=== PATIENT | female | born 1975 | race African-American/Black ===

== ENCOUNTER 2017-06-01 13:16 | Emergency (ER) | payer SELFPAY ==
[~2017-06-01 13:16] MED LIST: TRAM50TA3 PO
== END 2017-06-01 14:04 | disposition left against medical advice (07) ==
LOC: ER 13:55
DX: N64.4 Mastodynia (principal); Z53.21 Procedure and treatment not carried out due to patient leaving prior to being seen by health care provider

== ENCOUNTER 2017-06-03 08:54 | Emergency (ER) | payer SELFPAY ==
[~2017-06-03] VITALS: Ht 172.7 cm; Wt 90.0 kg
[2017-06-03] MEDS ORDERED: ACETAMINOPHEN 325MG TABLET PO ONE (10:15)
[2017-06-03 11:00] LABS: *AMPHETAMINES SCREEN URINE NEGATIVE (NEGATIVE); *BARBITURATES SCREEN URINE NEGATIVE (NEGATIVE); *BENZODIAZEPINES SCREEN URINE NEGATIVE (NEGATIVE); *COCAINE SCREEN URINE NEGATIVE (NEGATIVE); METHADONE URINE SCREEN NEGATIVE (NEGATIVE); PHENCYCLIDINE URINE SCREEN NEGATIVE (NEGATIVE)
[2017-06-03 11:01] LABS: CANNABINOID URINE SCREEN PRESUMTIVE POSITIVE (NEGATIVE); OPIATES URINE SCREEN PRESUMTIVE POSITIVE (NEGATIVE)
[2017-06-03 11:30] VITALS: BP 115/69
== END 2017-06-03 12:28 | disposition home or self-care (01) ==
LOC: ER 08:54
DX: O26.892 Other specified pregnancy related conditions, second trimester (principal); N61.1 Abscess of the breast and nipple; F12.10 Cannabis abuse, uncomplicated; Z3A.16 16 weeks gestation of pregnancy
CPT/HCPCS: 80305; 81025; 87070; 87205; 99284; Z7610

== ENCOUNTER 2017-07-11 11:06 | Emergency (ER) | payer SELFPAY ==
[~2017-07-11] VITALS: Ht 177.8 cm; Wt 103.0 kg
[2017-07-11 11:34] VITALS: BP 115/66
== END 2017-07-11 19:00 | disposition left against medical advice (07) ==
LOC: ER 15:46
DX: Z53.21 Procedure and treatment not carried out due to patient leaving prior to being seen by health care provider (principal)

== ENCOUNTER 2017-07-13 09:58 | Emergency (ER) | payer SELFPAY ==
[~2017-07-13] VITALS: Ht 177.8 cm; Wt 104.0 kg
[2017-07-13] MEDS ORDERED: ACETAMINOPHEN 325MG TABLET PO ONE (13:00)
[2017-07-13 13:12] LABS: BASOPHILS % 0.7 % (0.0-2.0); EOSINOPHILS % 0.6 % (0.0-5.0); HEMATOCRIT. 31.7 % (36.0-48.0); HEMOGLOBIN. 10.4 g/dL (12.0-16.0); LYMPHOCYTES % 26.8 % (20.0-50.0); MEAN CORPUSCULAR HEMOGLOBIN 25.6 pg (28.0-32.0); MEAN CORPUSCULAR VOLUME 77.6 fL (81.0-99.0); MEAN PLATELET VOLUME 9.3 fl (7.4-10.4); MONOCYTES % 6.7 % (2.0-8.0); NEUTROPHILS % 65.2 % (40.0-76.0); PLATELET 265 x1000/uL (130-400); RED BLOOD CELL COUNT 4.08 mill/uL (4.2-5.4); RED CELL DISTRIBUTION WIDTH 18.5 % (11.6-14.6)
[2017-07-13 13:18] LABS: CHLORIDE 101 mEq/L (98-107)
[2017-07-13 13:19] LABS: INR 0.9; PROTHROMBIN TIME 9.4 sec (9.4-11.6)
[2017-07-13 13:23] LABS: CARBON DIOXIDE 30 mEq/L (21-32)
[2017-07-13 13:27] LABS: CLARITY URINE CLEAR (CLEAR); COLOR URINE YELLOW (YELLOW); GLUCOSE URINE NEGATIVE (NEGATIVE); KETONES URINE NEGATIVE (NEGATIVE); LEUKOCYTE ESTERASE URINE NEGATIVE (NEGATIVE); NITRITE URINE NEGATIVE (NEGATIVE); OCCULT BLOOD URINE NEGATIVE (NEGATIVE); PH URINE 6.5 (4.5-8.0); PROTEIN URINE NEGATIVE (NEGATIVE); SPECIFIC GRAVITY URINE 1.026 (1.005-1.030); UROBILINOGEN URINE 0.2 E.U./dL (0.2-1.0)
[2017-07-13 13:42] LABS: B-HCG QUANTITATIVE 12504 mIU/mL (<3)
[2017-07-13 14:05] LABS: *AMPHETAMINES SCREEN URINE NEGATIVE (NEGATIVE); *BARBITURATES SCREEN URINE NEGATIVE (NEGATIVE); *BENZODIAZEPINES SCREEN URINE NEGATIVE (NEGATIVE); *COCAINE SCREEN URINE NEGATIVE (NEGATIVE); METHADONE URINE SCREEN NEGATIVE (NEGATIVE); OPIATES URINE SCREEN NEGATIVE (NEGATIVE); PHENCYCLIDINE URINE SCREEN NEGATIVE (NEGATIVE)
[2017-07-13 14:06] LABS: CANNABINOID URINE SCREEN PRESUMTIVE POSITIVE (NEGATIVE)
[2017-07-13 14:35] VITALS: BP 108/58
== END 2017-07-13 14:50 | disposition home or self-care (01) ==
LOC: EDSTATUS 09:58 → ER 10:52
DX: O20.0 Threatened abortion (principal); O26.892 Other specified pregnancy related conditions, second trimester; F17.200 Nicotine dependence, unspecified, uncomplicated; F12.10 Cannabis abuse, uncomplicated; F31.9 Bipolar disorder, unspecified; Z3A.15 15 weeks gestation of pregnancy; Z88.8 Allergy status to other drugs, medicaments and biological substances
CPT/HCPCS: 36415; 76801; 80053; 80305; 81003; 83690; 84702; 85025; 85610; 86850; 86900; 86901; 99285; Z7610

== ENCOUNTER 2017-12-03 12:45 | Emergency (ER) | payer SELFPAY ==
[~2017-12-03] VITALS: Ht 175.3 cm; Wt 101.0 kg
[~2017-12-03 12:45] MED LIST changes: +PREN1TAB78 PO
[2017-12-03] MEDS ORDERED: CEPHALEXIN 500MG CAPSULE PO ONE (18:30)
[2017-12-03 18:38] VITALS: BP 120/66
== END 2017-12-03 18:39 | disposition home or self-care (01) ==
LOC: EDSTATUS 12:45 → ER 12:48
DX: O91.113 Abscess of breast associated with pregnancy, third trimester (principal); N61.1 Abscess of the breast and nipple; Z3A.00 Weeks of gestation of pregnancy not specified; Z88.8 Allergy status to other drugs, medicaments and biological substances
CPT/HCPCS: 10060; 99283; Z7610

== ENCOUNTER 2018-09-23 05:45 | Emergency (ER) | payer SELFPAY ==
[~2018-09-23] VITALS: Ht 167.6 cm; Wt 70.0 kg
[~2018-09-23 05:45] MED LIST changes: -TRAM50TA3 PO
[2018-09-23 07:45] VITALS: BP 122/74
[2018-09-23] MEDS ORDERED: GUAIFENESIN/CODEINE 200-20MG/10ML UDC PO ONE (07:45)
[2018-09-23] MEDS ORDERED: DEXAMETHASONE 10 MG/ML VIAL IM ONE (07:45)
[2018-09-23] MEDS ORDERED: KETOROLAC 60MG/2ML VIAL IM ONE (07:45)
[2018-09-23] MEDS ORDERED: ALBUTEROL (0.5%) 2.5MG/0.5ML NEB HHN ONE (07:45)
[2018-09-23] MEDS ORDERED: GUAIFENESIN 200MG/10ML SUGAR FREE UDC ONE (08:18)
[2018-09-23] MEDS ORDERED: LEVOFLOXACIN 750MG PREMIX 150 ML IV ONE (09:15)
[2018-09-23] MEDS ORDERED: LEVOFLOXACIN 250MG TABLET PO ONE (09:30)
== END 2018-09-23 10:27 | disposition home or self-care (01) ==
LOC: ER 05:45
DX: J18.9 Pneumonia, unspecified organism (principal); F17.200 Nicotine dependence, unspecified, uncomplicated; Z88.8 Allergy status to other drugs, medicaments and biological substances
CPT/HCPCS: 71045; 81025; 96372; 99283; J1100; J1885; J1956; J7611

== ENCOUNTER 2019-05-07 16:45 | Inpatient (IN) | payer SELFPAY ==
[~2019-05-07] VITALS: Ht 167.6 cm; Wt 84.0 kg
[2019-05-07] MEDS ORDERED: DEXT 5%/LR + PITOCIN 20UNITS/L 1,000 ML IV SCH (18:59)
[2019-05-07] MEDS ORDERED: METHYLERGONOVINE MALEATE 0.2 MG/ML IM PRN (19:00)
[2019-05-07] MEDS ORDERED: RHO(D) IMMUNE GLOBULIN 300 MCG/SYR IM PRN (19:00)
[2019-05-07] MEDS ORDERED: LANOLIN OINT 7GM TUBE TOP PRN (19:00)
[2019-05-07] MEDS ORDERED: DIPHENHYDRAMINE 25MG CAPSULE PO PRN (19:00)
[2019-05-07] MEDS ORDERED: IBUPROFEN 400MG TABLET PO PRN (19:00)
[2019-05-07] MEDS: IBUPROFEN 800MG TABLET PO PRN (19:41)
[2019-05-07 20:20] VITALS: BP 117/75
[2019-05-08 00:30] VITALS: BP 132/88
[2019-05-08 07:30] VITALS: BP 126/92
[2019-05-08] MEDS: IBUPROFEN 800MG TABLET PO PRN ×2 (08:42→19:28)
[2019-05-08] MEDS: PRENATAL VIT/FE FUMARATE/FA TABLET PO SCH (08:42)
[2019-05-08 15:58] VITALS: BP 131/85
[2019-05-08 19:27] VITALS: BP 129/76
[2019-05-08 20:00] VITALS: BP 128/79
[2019-05-09 00:11] VITALS: BP 138/88
[2019-05-09 07:45] VITALS: BP 111/75
[2019-05-09] MEDS: PRENATAL VIT/FE FUMARATE/FA TABLET PO SCH (08:20)
[2019-05-09] MEDS: IBUPROFEN 800MG TABLET PO PRN (08:21)
== END 2019-05-09 10:15 | disposition home or self-care (01) | DRG 561 ==
LOC: ER 16:45 → 8 EST LDRP 17:20 → MERGE 17:20 → OBSVTOIN 17:20 → EDBD 17:20 → 8EST 20:15
PROVIDERS: ADMIT Obstetrics & Gynecology; ATTEND Obstetrics & Gynecology
DX: Z39.0 Encounter for care and examination of mother immediately after delivery (principal)
CPT/HCPCS: 88305; 99285